=== PATIENT | female | born 1985 | race Two or more races ===

== ENCOUNTER → 2025-04-10 | Emergency (ER) | payer BC ==
[~2025-04-10] VITALS: Ht 172.7 cm; Wt 55.8 kg
[~2025-04-10] MED LIST: AZEL6DRO5 EACHEYE
[2025-04-10 16:45] VITALS: BP 109/70; O2SAT 99
== END | disposition home or self-care (01) ==
LOC: ER 16:41
DX: Z77.098 Contact with and (suspected) exposure to other hazardous, chiefly nonmedicinal, chemicals (principal)
CPT/HCPCS: A4606; A4663